=== PATIENT | female | born 2005 | race Caucasian/White ===

== ENCOUNTER 2025-09-16 10:29 | Day surgery (SDC) | payer OTHER ==
[2025-09-16 10:46] VITALS: BMI 45.2
[2025-09-16 12:02] LABS: Protein, Urine Random Quant 17.0 mg/dL (1-14)
[2025-09-16 12:22] LABS: #Basophils 0.03 10x3/uL (0.0-0.2); #Eosinophils 0.11 10x3/uL (0.0-0.5); #Monocytes 0.57 10x3/uL (0.0-1.1); #Neutrophils 7.05 10x3/uL (1.5-8.4); %Basophils 0.3 % (0.0-2.0); %Eosinophils 1.2 % (0.0-6.0); %Lymphocytes 12.2 % (18.0-47.0); %Monocytes 6.4 % (0.0-10.0); %Neutrophils 79.3 % (40.0-75.0); Hematocrit 34.4 % (34.9-44.5); Hemoglobin 11.7 g/dL (12.0-15.5); Mean Corpuscular Hemoglobin 29.0 pg (27.0-33.0); Mean Corpuscular Volume 85.4 fL (81.6-98.3); Platelet Count 264 10x3/uL (150-450); Red Blood Cell (RBC) Count 4.03 10x6/uL (3.90-5.03); White Blood Cell (WBC) Count 8.90 10x3/uL (3.5-10.5)
[2025-09-16] MEDS: Calcium Carbonate 500 MG ChewTAB PO PRN (12:36)
[2025-09-16 12:37] LABS: ALT (SGPT) 9 U/L (Less than 34); AST (SGOT) 20 U/L (11-34); Albumin 2.9 g/dL (3.1-4.5); Alkaline Phosphatase 109 U/L (40-110); Anion Gap 12 mmol/L (10-20); BUN (Urea Nitrogen) 7 mg/dL (7.0-18.7); Bilirubin, Total 0.2 mg/dL (0.3-1.2); Calc. Creatinine Clearance 282 mL/min (70-130); Calcium 8.7 mg/dL (7.8-10.44); Carbon Dioxide 18 mmol/L (22-29); Chloride 111 mmol/L (98-107); Globulin 3.7 g/dL (2.4-3.5); Glucose 102 mg/dL (70-105); Potassium 4.0 mmol/L (3.5-5.1); Sodium 137 mmol/L (136-145)
== END 2025-09-16 15:00 | disposition home or self-care (01) ==
LOC: CSHLD/OP 10:29
PROVIDERS: ATTEND Emergency Medicine
DX: O99.891 Other specified diseases and conditions complicating pregnancy (principal); R03.0 Elevated blood-pressure reading, without diagnosis of hypertension; O21.2 Late vomiting of pregnancy; O99.213 Obesity complicating pregnancy, third trimester; Z3A.33 33 weeks gestation of pregnancy; Z67.40 Type O blood, Rh positive; Z79.899 Other long term (current) drug therapy
CPT/HCPCS: 80053; 82570; 84156; 85025; 99284

== ENCOUNTER 2025-10-01 11:04 | Day surgery (SDC) | payer OTHER ==
[2025-10-01] MEDS ORDERED: hydrALAZINE 20 MG/ML VIAL SLOW IVP PRN (11:08)
[2025-10-01 11:31] LABS: #Basophils 0.03 10x3/uL (0.0-0.2); #Eosinophils 0.16 10x3/uL (0.0-0.5); #Monocytes 0.46 10x3/uL (0.0-1.1); #Neutrophils 7.34 10x3/uL (1.5-8.4); %Basophils 0.3 % (0.0-2.0); %Eosinophils 1.7 % (0.0-6.0); %Lymphocytes 13.9 % (18.0-47.0); %Monocytes 4.9 % (0.0-10.0); %Neutrophils 78.6 % (40.0-75.0); Hematocrit 35.2 % (34.9-44.5); Hemoglobin 11.7 g/dL (12.0-15.5); Mean Corpuscular Hemoglobin 28.5 pg (27.0-33.0); Mean Corpuscular Volume 85.9 fL (81.6-98.3); Platelet Count 254 10x3/uL (150-450); Red Blood Cell (RBC) Count 4.10 10x6/uL (3.90-5.03); White Blood Cell (WBC) Count 9.35 10x3/uL (3.5-10.5)
[2025-10-01 11:34] VITALS: BMI 45.7
[2025-10-01 11:46] LABS: ALT (SGPT) 9 U/L (Less than 34); AST (SGOT) 37 U/L (11-34); Albumin 3.0 g/dL (3.1-4.5); Alkaline Phosphatase 134 U/L (40-110); Anion Gap 15 mmol/L (10-20); BUN (Urea Nitrogen) 7 mg/dL (7.0-18.7); Bilirubin, Total 0.2 mg/dL (0.3-1.2); Calc. Creatinine Clearance 263 mL/min (70-130); Calcium 8.5 mg/dL (7.8-10.44); Carbon Dioxide 16 mmol/L (22-29); Chloride 111 mmol/L (98-107); Globulin 3.6 g/dL (2.4-3.5); Glucose 123 mg/dL (70-105); Potassium 4.0 mmol/L (3.5-5.1); Sodium 138 mmol/L (136-145)
[2025-10-01 12:30] LABS: Protein, Urine Random Quant 16.0 mg/dL (1-14)
== END 2025-10-01 13:46 | disposition home or self-care (01) ==
LOC: CSHLD/OP 11:04
PROVIDERS: ATTEND Family Medicine
DX: O36.8130 Decreased fetal movements, third trimester, not applicable or unspecified (principal); Z3A.35 35 weeks gestation of pregnancy; Z67.40 Type O blood, Rh positive; Z79.899 Other long term (current) drug therapy
CPT/HCPCS: 36415; 76819; 80053; 82570; 84156; 85025; 99285

== ENCOUNTER 2025-10-13 18:00 | Inpatient (IN) | payer OTHER ==
[2025-10-13 18:37] VITALS: BMI 44.9
[2025-10-13] MEDS ORDERED: Lidocaine 1% (PF) 30 ML VIAL SC PRN (18:49)
[2025-10-13] MEDS ORDERED: Diphenoxylate HCl/Atropine Tablet PO PRN (18:49)
[2025-10-13] MEDS ORDERED: Ondansetron PF 4 MG/2 ML Vial IVP PRN (18:49)
[2025-10-13] MEDS ORDERED: hydrALAZINE 20 MG/ML VIAL SLOW IVP PRN (18:49)
[2025-10-13] MEDS ORDERED: Tranexamic Acid 1,000 MG/10 ML VIAL IVP PRN (18:49)
[2025-10-13] MEDS ORDERED: Oxytocin 30 units/NS 500 ML 500 ML IV SCH (19:00)
[2025-10-13 19:20] LABS: Hematocrit 33.7 % (34.9-44.5); Hemoglobin 11.3 g/dL (12.0-15.5); Mean Corpuscular Hemoglobin 28.8 pg (27.0-33.0); Mean Corpuscular Volume 86.0 fL (81.6-98.3); Platelet Count 301 10x3/uL (150-450); Red Blood Cell (RBC) Count 3.92 10x6/uL (3.90-5.03); White Blood Cell (WBC) Count 8.80 10x3/uL (3.5-10.5)
[2025-10-13 20:37] LABS: Hep B Surf Ag - L&D Non-Reactive S/CO (NonReactive)
[2025-10-13 20:38] LABS: Syphilis Antibody Index 0.06 S/CO (<1.00 Non-Reactive)
[2025-10-14] MEDS: Oxytocin 30 units/NS 500 ML 500 ML IV SCH (09:42)
[2025-10-14] MEDS: CEFAZOLIN 2 GM VIAL ONE (15:48)
[2025-10-14] MEDS: Azithromycin 500 MG VIAL ONE (15:48)
[2025-10-14] MEDS ORDERED: Bicitra 30 ML UDCUP PO PRN (15:54)
[2025-10-14] MEDS ORDERED: Famotidine/PF 20 mg/2ml Vial SLOW IVP PRN (15:54)
[2025-10-14] MEDS ORDERED: Azithromycin 500 MG in Sodium Chloride 0.9% 250 ML 250 ML IVPB SCH (16:00)
[2025-10-14] MEDS: Carboprost 250 MCG/ML AMP IM PRN (16:49)
[2025-10-14 17:09] LABS: Analyzer IN Cardio CS NICU
[2025-10-14 17:11] LABS: Analyzer IN Cardio CS NICU; pH (Cord, venous) 7.238 (7.250-7.350)
[2025-10-14] MEDS: Diphenoxylate HCl/Atropine Tablet PO PRN (19:48)
[2025-10-14] MEDS ORDERED: HYDROcodone/Acetaminophen 5/325 mg Tablet PO PRN (20:59)
[2025-10-14] MEDS ORDERED: Simethicone Chewable 80 MG TAB PO PRN (20:59)
[2025-10-14] MEDS ORDERED: hydrALAZINE 20 MG/ML VIAL SLOW IVP PRN (20:59)
[2025-10-14] MEDS ORDERED: Lanolin Ointment 7 GM TUBE TOP PRN (20:59)
[2025-10-14] MEDS ORDERED: diphenhydrAMINE 25 MG CAP PO PRN (20:59)
[2025-10-14] MEDS ORDERED: Ketorolac Tromethamine 30 MG (1 mL) VIAL IVP PRN (22:17)
[2025-10-14] MEDS: PHENYLEPHRINE-NS 100 MCG/ML 10 ML SYRINGE ONE (22:45)
[2025-10-14] MEDS: Dexamethasone 10 MG/ML VIAL ONE (22:49)
[2025-10-14] MEDS: Ketorolac Tromethamine 30 MG (1 mL) VIAL IVP PRN (22:55)
[2025-10-15 04:01] LABS: Hematocrit 26.1 % (34.9-44.5); Hemoglobin 8.8 g/dL (12.0-15.5); Mean Corpuscular Hemoglobin 29.0 pg (27.0-33.0); Mean Corpuscular Volume 86.1 fL (81.6-98.3); Platelet Count 257 10x3/uL (150-450); Red Blood Cell (RBC) Count 3.03 10x6/uL (3.90-5.03); White Blood Cell (WBC) Count 17.83 10x3/uL (3.5-10.5)
[2025-10-15] MEDS: Ferrous Sulfate 325 MG TAB PO SCH (04:42)
[2025-10-15] MEDS: Oxytocin 10 UNITS/ML VIAL ONE ×3 (07:01→08:27)
[2025-10-15] MEDS: Tranexamic Acid 1,000 MG/10 ML VIAL ONE (08:27)
[2025-10-15] MEDS: Ibuprofen 800 MG TAB PO SCH (08:28)
[2025-10-15] MEDS: HYDROcodone/Acetaminophen 5/325 mg Tablet PO PRN (08:52)
[2025-10-15] MEDS: Enoxaparin 40 MG (0.4 mL) SYRINGE SC SCH (08:52)
[2025-10-16] MEDS: Ibuprofen 800 MG TAB PO SCH (05:32)
[2025-10-16 08:39] VITALS: TEMP 98
[2025-10-16 12:12] VITALS: BP 140/70
[2025-10-20] MEDS ORDERED: Ibuprofen 800 MG TAB PO SCH (06:00)
== END 2025-10-16 13:30 | disposition home or self-care (01) | DRG 788 ==
LOC: CSHLD 18:03 → CSHPP 10-14 20:30
PROVIDERS: ADMIT Family Medicine; ATTEND Family Medicine
PROC: 10D00Z1 Extraction of Products of Conception, Low, Open Approach (ICD-10-PCS; principal; 2025-10-14)
PROC: 4A1HXCZ Monitoring of Products of Conception, Cardiac Rate, External Approach (ICD-10-PCS; 2025-10-14)
PROC: 10H07YZ Insertion of Other Device into Products of Conception, Via Natural or Artificial Opening (ICD-10-PCS; 2025-10-14)
DX: O13.4 Gestational [pregnancy-induced] hypertension without significant proteinuria, complicating childbirth (principal); Z3A.36 36 weeks gestation of pregnancy; Z37.0 Single live birth; O99.214 Obesity complicating childbirth; O76 Abnormality in fetal heart rate and rhythm complicating labor and delivery; K21.9 Gastro-esophageal reflux disease without esophagitis; O99.62 Diseases of the digestive system complicating childbirth; O99.344 Other mental disorders complicating childbirth; F32.A Depression, unspecified; O32.2XX0 Maternal care for transverse and oblique lie, not applicable or unspecified
CPT/HCPCS: 36415; 51702; 82805; 85027; 86780; 86850; 86900; 86901; 87340; J0456; J1100; J1650; J1885; J2274; J2590; J3010; J3105; J3490